=== PATIENT | female | born 1945 | race Caucasian/White ===

== ENCOUNTER 2020-07-31 09:56 | Outpatient (REF) | payer MEDICARE, SELFPAY ==
--- NOTE | 2020-07-31 10:00 | PFT_ITS ---
INDICATION: COPD. SPIROMETRY: The FEV1 to FVC of 52% with an FEV1 of 1.23 L, which is 56% predicted, and an FVC of 2.35 L, which is 81% predicted. Post bronchodilator shows significant improvement of the FVC by 26% and of the FEV1 by 32%. The patient also had evidence of small airways disease. Maximum voluntary ventilation only 46% predicted. LUNG VOLUMES: Total lung capacity 134% predicted. Residual volume 202% predicted. DIFFUSION CAPACITY: DLCO 61% predicted. COMPARISONS: None available. INTERPRETATION: There is an obstructive ventilatory defect consistent with moderate to severe COPD. There was a significant response to bronchodilators noted. Also, significant small airways disease. In addition to that, the patient has a moderate decrease in maximum voluntary ventilation secondary to likely deconditioning and also worsening dynamic inspiratory capacity. Lung volumes do demonstrate significant hyperinflation and air trapping due to the COPD and there is a moderate diffusion impairment secondary to emphysema and other lung conditions should be considered. Clinical correlation warranted. Andrey Rizo MD MR/MODL / [id number]
== END 2020-07-31 09:57 | disposition home or self-care (01) ==
LOC: HO.RESP 09:56
PROVIDERS: PCP Hospitalist; Visit Provider Hospitalist
DX: J44.9 Chronic obstructive pulmonary disease, unspecified (principal)
CPT/HCPCS: 94060; 94727; 94729; 99212

== ENCOUNTER → 2021-11-17 12:31 | Outpatient (BNVA) | payer MEDICARE, SELFPAY | PROVIDERS: PCP Hospitalist; Visit Provider Hospitalist | DX: J41.8 Mixed simple and mucopurulent chronic bronchitis (principal); R91.8 Other nonspecific abnormal finding of lung field; F17.210 Nicotine dependence, cigarettes, uncomplicated; Z79.899 Other long term (current) drug therapy | CPT/HCPCS: 99212 ==

== ENCOUNTER 2023-09-28 13:03 | Outpatient (AMB) | payer MEDICARE, MEDICAID, SELFPAY ==
[2023-09-28 13:06] VITALS: BP 128/60; PULSE 89; O2SAT 84; BMI 19.6
--- NOTE | 2023-09-28 13:06 | MHC.OFFVIS ---
Vital Signs 09/28/23 13:06 Height 5 ft 2 in Weight 107 lb BMI 19.6 BP 128/60 Blood Pressure Location Lt brachial Position Sitting Pulse 89 Pulse Source Pulse Oximeter Pulse Oximetry (%) 84 L Oxygen Delivery Method Room Air Intake Visit Reasons: COPD Real Estate Inspector Required: No Allergies No Known Allergies Allergy (Verified 09/28/23 13:09) HPI Comments Details: The patient is a 78-year-old woman with known history of COPD and pulmonary nodules. Overall she has been doing well. She continues on the current respiratory regimen with good results. Initially she was on the Dulera 100 and we increased it to the 200 and she did not see any significant difference. Therefore will work on getting her to the lower dose steroid. She also was using the Spiriva Handy haler which she liked more than this respite med device. We did go over the instructions on how to use the rest per med correctly and she will continue using it for now. In addition to not will following pulmonary nodules. Her next CT scan is scheduled for [address] [facility]. I did request that she call me when she had a done so I can take a look at it and make sure that we discussed the findings. Otherwise the patient is without any other complaints. 07/31/2020 the patient is here for pulmonary follow-up visit. She continues to have dyspnea on exertion. Moderate severity. Also complaining of cough at times productive in nature. The respiratory therapy does help her improve her symptoms. She does use her rescue inhaler on daily basis in addition to using her Dulera and Spiriva. The patient did undergo pulmonary function studies demonstrating evidence significant improvement after bronchodilators were administered where initially she was severely obstructed in the improved to moderate obstruction. Significant improvement of the small airways as well. The patient understands that overall she is dealing with significant obstructive airway disease and we did talk about the importance of quitting smoking before her lungs got worse. I have reassured her that she stop smoking her lung capacity is to able to carry her through as long as she takes care of her lungs in takes care of the exposures to smoking also fumes and toxins. Recently she was cleaning a bathroom and she was using strong detergent was fumes and she had a hard time breathing afterwards. The patient is a great candidate for the lung cancer screening program so therefore we will have her schedule to do most likely started in the fall [address] scan was December. 11/17/2021 the patient is here for a pulmonary follow-up visit. Overall she is doing about the same. She continues on her respiratory therapy. It is very expensive for her. She is pending better 100 dollars for the Symbicort and a little bit less on her Spiriva. Medications have been affecting beneficial. Will try to switch her to a more generic combination. The patient still struggles with smoking. She has been cutting down significantly. She could not get the Nicotrol inhaler because of the expense. She is going to continue trying to cut down herself. She is participating in the lung cancer screening program per the patient [facility]. Will try to get some results from [facility]. If we do not have a recent CT scan then will go ahead and schedule her for the lung cancer screening program here. She has known pulmonary nodules in the past. She has a risk for malignancy. 09/28/2023 the patient is here for a pulmonary follow-up visit. She has been lost to follow-up for some time. The patient has been having increasing shortness breath cough. She has been having hard time affording her medications. She has been without her Symbicort Spiriva. She does have a rescue inhaler. In the meantime she continues to smoke. She has been trying to cut down. She does have oxygen at home although she does not use it all the time. Today in the office visit she was hypoxic down to 84%. Once she is down and she rested her oxygen improved to 90%. Therefore, she understands that when she gets home she needs to make sure she uses her oxygen. She also has a make sure that she has portability with her oxygen supplementation once she is out of the home. The patient had been participating in the lung cancer screening program. I did offer to refer her to our program here so we can follow her closely. But, it is difficult for her to travel and therefore she will continue have not [facility]. The patient also seems a little bit more forgetful. I will make a note for her primary care doctor in order to address the question of her memory. [facility] Medical History (Updated 08/01/20 @ 21:51 by Andrey Rizo MD) Tobacco dependence due to cigarettes Pulmonary nodules COPD (chronic obstructive pulmonary disease) Bronchitis, chronic Social History (Updated 09/28/23 @ 13:10 by STEFANIE Catalan) Patient Tobacco Use Status: Current everyday Tobacco user Tobacco use type: Cigarette Cigarette Packs Per Day: 1 Cigarettes Per Day: 6 Years Smoked: 30 years Review of Systems Const Denies night sweats ENT Denies change in voice, Denies lip swelling, Denies mouth pain, Reports nasal congestion, Reports nasal discharge and Denies tongue swelling Card Denies chest pain and Reports dyspnea on exertion Resp Reports cough, Reports dyspnea on exertion and Reports wheezing GI Denies abdominal pain Musc Denies no additional complaints Neuro Denies Neuro-related abnormal movements and Reports memory loss Psych Denies no additional complaints and Reports memory loss Justice/Lymph Denies easy bleeding and Denies lymphadenopathy Aller/Immun Denies lip swelling, Denies tongue swelling and Reports wheezing Physical Exam Vital Signs: Last Vital Signs Pulse 89 09/28/23 13:06 BP 128/60 09/28/23 13:06 Pulse Ox 84 L 09/28/23 13:06 Oxygen Delivery Method Room Air 09/28/23 13:06 BMI result Body Mass Index 19.6 Const General: alert Neck Neck: Yes normal visual inspection, Yes full ROM and Yes no lymphadenopathy Chest Chest palpation & inspection: normal inspection of the chest Resp Auscultation: rhonchi, wheezes and diminished lung sounds Cardio Rate: regular rate Rhythm: regular rhythm Heart sounds: S1 normal heart sound present and S2 normal heart sound present GI Palpation (GI): Soft to palpation and nontender Auscultation: normal bowel sounds General: Yes no CVA tenderness Back/Spine/Pelvis Back: no CVA tenderness Skin General skin exam: rashes and/or lesions noted Quality Reporting (2019) Adult ([facility] ) Smoking risk assessment performed?: Yes Assessment & Plan Assessment & Plan (1) COPD (chronic obstructive pulmonary disease): Code(s): J44.9 - Chronic obstructive pulmonary disease, unspecified Category: Medical Qualifiers: COPD type: chronic bronchitis Chronic bronchitis type: mixed simple and mucopurulent Qualified Code(s): J41.8 - Mixed simple and mucopurulent chronic bronchitis (2) Pulmonary nodules: Code(s): R91.8 - Other nonspecific abnormal finding of lung field Category: Medical (3) Tobacco dependence due to cigarettes: Code(s): F17.210 - Nicotine dependence, cigarettes, uncomplicated Category: Medical Plan Continue Symbicort Short-acting beta agonist as needed Lung cancer screening program. She is currently participating at [facility]. We will reach out to [facility] to make sure that she is active with their LDCT program Tobacco cessation. Trying to cut down Oxygen supplementation with activity and sleep Follow-up in 6 months or sooner if she develops any worsening symptoms Medications: New budesonide-formoterol 160-4.5 mcg/actuation (Symbicort) 2 puffs inhalation BID 30 days 10.2 grams 11RF J44.89 - Other specified chronic obstructive pulmonary disease Refilled tiotropium bromide 2.5 mcg/actuation (Spiriva Respimat) 2 puffs inhalation DAILY 30 days 1 ea 11RF Coding Level of Care Code Est Pt Level 4 (97803) Diagnoses Mixed simple and mucopurulent chronic bronchitis J41.8 COPD type: chronic bronchitis Chronic bronchitis type: mixed simple and mucopurulent Pulmonary nodules R91.8 Tobacco dependence due to cigarettes F17.210 Time Spent (min) 17
== END 2023-09-28 13:24 | disposition home or self-care (01) ==
PROVIDERS: PCP Hospitalist; Visit Provider Hospitalist
DX: J41.8 Mixed simple and mucopurulent chronic bronchitis (principal); R91.8 Other nonspecific abnormal finding of lung field; F17.210 Nicotine dependence, cigarettes, uncomplicated
CPT/HCPCS: 99214

== ENCOUNTER → 2023-09-28 13:03 | Outpatient (BNVA) | payer MEDICARE, MEDICAID, SELFPAY | PROVIDERS: PCP Hospitalist; Visit Provider Hospitalist | DX: J41.8 Mixed simple and mucopurulent chronic bronchitis (principal); R91.8 Other nonspecific abnormal finding of lung field; F17.210 Nicotine dependence, cigarettes, uncomplicated | CPT/HCPCS: 99212 ==